=== PATIENT | male | born 1970 | race Caucasian/White ===

== ENCOUNTER → 2019-03-17 14:48 | Outpatient (BNVA) | payer BC, SELFPAY | PROVIDERS: Visit Provider Internal Medicine Rheumatology | DX: M05.79 Rheumatoid arthritis with rheumatoid factor of multiple sites without organ or systems involvement (principal); Z79.899 Other long term (current) drug therapy; Z79.891 Long term (current) use of opiate analgesic; G89.29 Other chronic pain | CPT/HCPCS: 36415; 80053; 80307; 99213 ==

== ENCOUNTER → 2019-03-17 15:59 | Outpatient (BNVA) | payer BC, SELFPAY | PROVIDERS: Visit Provider Internal Medicine Rheumatology | DX: Z51.81 Encounter for therapeutic drug level monitoring (principal); M05.79 Rheumatoid arthritis with rheumatoid factor of multiple sites without organ or systems involvement; Z79.891 Long term (current) use of opiate analgesic | CPT/HCPCS: 85025 ==

== ENCOUNTER 2019-05-10 07:05 | Outpatient (CLI) | payer BC, SELFPAY ==
--- NOTE | 2019-05-10 07:15 | XR_ITS ---
WS: [id number] ABDOMEN: SUPINE FILM HISTORY: urolithiasis COMPARISON: 10/29/2018 Prior cholecystectomy. Normal bowel gas pattern. Sclerotic lesion RIGHT ilium and area of enostosis. Right kidney: Small cluster of calcifications central RIGHT kidney with a maximum diameter 6 mm. No c hange. Left kidney: 2 mm calcification mid LEFT kidney. Previously described distal LEFT ureteral calcificat ion is no longer present. XR/XR KUB 85062 IMPRESSION: 1. Distal LEFT ureteral calcification is no longer identified. 2. Bilateral nephrolithiasis, unchanged.
== END 2019-05-10 07:06 | disposition home or self-care (01) ==
LOC: RAD 07:06
PROVIDERS: Visit Provider Urology
DX: N20.9 Urinary calculus, unspecified (principal); N20.0 Calculus of kidney
CPT/HCPCS: 74018; 81001

== ENCOUNTER 2019-06-16 07:13 | Outpatient (CLI) | payer BC, SELFPAY ==
--- NOTE | 2019-06-16 07:15 | XR_ITS ---
WS: [id number] XR KUB 10651 REASON FOR EXAM: urolithiasis FINDINGS: Sob changes with clips in the gallbladder. Stones are seen in both kidneys prominent stone is seen in the right today measures 6.25 mm and multi ple smaller stones are seen on left side. The ureters appear to be normal. The bladder area was normal. There is no obstructive changes. XR/XR KUB 91007 IMPRESSION: Bilateral renal calculus similar to previous exam May 10, 2019.
== END 2019-06-16 07:14 | disposition home or self-care (01) ==
LOC: RAD 07:16
PROVIDERS: Visit Provider Urology
DX: N20.9 Urinary calculus, unspecified (principal); N20.0 Calculus of kidney
CPT/HCPCS: 74018; 81001

== ENCOUNTER → 2019-09-15 09:38 | Outpatient (BNVA) | payer BC, SELFPAY | PROVIDERS: Visit Provider Internal Medicine Rheumatology | DX: M05.79 Rheumatoid arthritis with rheumatoid factor of multiple sites without organ or systems involvement (principal); Z79.899 Other long term (current) drug therapy; Z11.59 Encounter for screening for other viral diseases; Z11.1 Encounter for screening for respiratory tuberculosis; N20.2 Calculus of kidney with calculus of ureter; I10 Essential (primary) hypertension; F17.210 Nicotine dependence, cigarettes, uncomplicated | CPT/HCPCS: 36415; 80076; 82565; 84132; 85025; 85651; 86140; 86480; 86704; 86803; 87340; 99214 ==

== ENCOUNTER 2020-05-21 15:06 | Emergency (ER) | payer BC, SELFPAY ==
[2020-05-21 15:33] VITALS: BP 170/99; PULSE 60; RESP 18; TEMP 36.9; O2SAT 97; BMI 25.0
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
[2020-05-21 16:05] VITALS: RESP 16
[2020-05-21] MEDS: morphine 4 mg/mL SDV 1 mL IM (16:05)
[2020-05-21] MEDS: tetanus-diphtheria tox (adult) 0.5 mL SDV IM (16:06)
[2020-05-21] MEDS: ceFAZolin 1,000 mg SDV 1000 MG IM (16:22)
[2020-05-21 16:38] VITALS: RESP 18
[2020-05-21] MEDS: HYDROmorphone 1 mg/mL INJ 1 mL SUBCUT (16:38)
[2020-05-21 16:58] VITALS: BP 149/92; PULSE 75; RESP 16; O2SAT 97
--- NOTE | 2020-05-21 17:46 | PC.NURSE ---
irrigated the wound with NS, vaseline dressing and gauze applied to laceration site. splint applied, patient tolerated well
[2020-05-21 18:03] VITALS: BP 155/96; PULSE 77; RESP 16; O2SAT 97
== END 2020-05-21 18:31 | disposition short-term general hospital (02) ==
PROVIDERS: Emergency Provider Family Medicine
DX: S52.572A Other intraarticular fracture of lower end of left radius, initial encounter for closed fracture (principal); S62.112A Displaced fracture of triquetrum [cuneiform] bone, left wrist, initial encounter for closed fracture; S60.811A Abrasion of right wrist, initial encounter; I10 Essential (primary) hypertension; F17.210 Nicotine dependence, cigarettes, uncomplicated; V29.9XXA Motorcycle rider (driver) (passenger) injured in unspecified traffic accident, initial encounter; Z23 Encounter for immunization
CPT/HCPCS: 29125; 73090; 73110; 90471; 90714; 96372; 99285; J0690; J1170; J2270

== ENCOUNTER → 2020-06-05 12:58 | Outpatient (BNVA) | payer BC, SELFPAY | PROVIDERS: Visit Provider Internal Medicine Rheumatology | DX: M05.79 Rheumatoid arthritis with rheumatoid factor of multiple sites without organ or systems involvement (principal); Z79.899 Other long term (current) drug therapy; S52.502B Unspecified fracture of the lower end of left radius, initial encounter for open fracture type I or II; S62.112A Displaced fracture of triquetrum [cuneiform] bone, left wrist, initial encounter for closed fracture; Y93.9 Activity, unspecified; F17.210 Nicotine dependence, cigarettes, uncomplicated | CPT/HCPCS: 99214 ==

== ENCOUNTER → 2020-12-11 09:09 | Outpatient (BNVA) | payer BC, SELFPAY | PROVIDERS: Visit Provider Internal Medicine Rheumatology | DX: M05.79 Rheumatoid arthritis with rheumatoid factor of multiple sites without organ or systems involvement (principal); Z79.899 Other long term (current) drug therapy; F17.210 Nicotine dependence, cigarettes, uncomplicated | CPT/HCPCS: 99214 ==

== ENCOUNTER 2021-01-21 16:27 | Emergency (ER) | payer OTHER, BC, SELFPAY ==
[2021-01-21] VITALS (25 sets, daily range): BP systolic 94–132; BP diastolic 58–98; PULSE 119–152; RESP 11–26; O2SAT 91–98; BMI 24.3
--- NOTE | 2021-01-21 16:38 | XRR_ITS ---
PROCEDURE INFORMATION: Exam: XR Chest Exam date and time: 01/21/2021 4:38 PM Age: 50 years old Clinical indication: Shortness of breath; Additional info: Tachycardia TECHNIQUE: Imaging protocol: XR of the chest. Views: 1 view. COMPARISON: CR XR KUB 48032 06/16/2019 7:29 AM FINDINGS: Lungs: Unremarkable. No consolidation. Pleural spaces: Unremarkable. No pleural effusion. No pneumothorax. Heart/Mediastinum: Unremarkable. No cardiomegaly. Bones/joints: 4th anterior rib appears to demonstrate some apparent prominent sclerosis projected over the right lower lung field, a nonemergent chest CT could further evaluate this XR/XR chest 1V portable 39010 IMPRESSION: 1. No acute findings. 2. 4th anterior rib appears to demonstrate some apparent prominent sclerosis projected over the right lower lung field, a nonemergent chest CT could further evaluate this
[2021-01-21] MEDS: sodium chloride 0.9% 1,000 ML 999 ML IV (16:45)
[2021-01-21] MEDS: adenosine 3 mg/mL SDV 2mL 6 MG IVP (16:45)
--- NOTE | 2021-01-21 16:48 | PC.NURSE ---
REPORT GIVEN TO BRODIE REYNOSO CHARGE NURSE. DR. REAVES AT BEDSIDE.
[2021-01-21 16:49] LABS: Basophils # 0.1 10^3/uL (0.0-0.1); Basophils % 0.3 %; Eosinophils # 0.1 10^3/uL (0.0-0.8); Eosinophils % 0.8 %; Hematocrit 49.1 % (42.0-52.0); Hemoglobin 16.2 g/dL (11.7-16.6); Lymphocytes # 2.7 10^3/uL (0.8-4.8); Lymphocytes % 17.2 %; Mean Corpuscular Hemoglobin 29.2 pg (28.0-34.0); Mean Corpuscular Volume 88.5 fl (80-94); Mean Platelet Volume 9.9 fL (7.4-10.4); Monocytes # 1.3 10^3/uL (0.2-0.9); Monocytes % 8.1 %; Neutrophils # 11.47 10^3/uL (1.8-7.7); Nucleated Red Blood Cells % 0 %; Platelet Count 189 10^3/cmm (130-400); Red Blood Count 5.55 10^6/uL (4.1-5.3); White Blood Count 15.7 10^3/uL (4.0-10.0)
[2021-01-21] MEDS: adenosine 3 mg/mL SDV 2mL 12 MG IVP (17:00)
--- NOTE | 2021-01-21 17:03 | ECG_ITS ---
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 Measurements Intervals [place] Rate: 99 P: 72 UT: 124 QRS: 93 QRSD: 91 T: 6 QT: 328 QTc: 422 Interpretive Statements SINUS RHYTHM WITH OCCASIONAL VENTRICULAR PREMATURE COMPLEXES BORDERLINE RIGHT AXIS DEVIATION [QRS AXIS > 90] NONSPECIFIC T-WAVE ABNORMALITY INTERPRETATION BASED ON A DEFAULT AGE OF 40 YEARS No previous ECG available for comparison Electronically Signed On 01-21-2021 20:12:59 MUSHROOM CULTIVATOR by Anitra Alejandro M.D. [id number]
--- NOTE | 2021-01-21 17:10 | W.ED.SOB ---
Documented by User: José Cunha MD 02/01/21 01:42 HPI - SOB/Dyspnea General: Chief Complaint: Shortness of Breath/Dyspnea Stated Complaint: SOB Time Seen by Provider: 01/21/21 16:38 History of Present Illness: HPI Narrative: Mr. Correia is a 50-year-old gentleman with history of rheumatoid arthritis who presents emergency department due to shortness of breath. He reports symptom onset 3 to 4 days ago and gradual. He describes worse symptoms with exertion. No associated cough but he does feel a irritation inside his body which he describes like breathing cold air/rawness. No specific associated chest pain however sometimes this feeling goes down his arms. Denies specific chest pain. He is a smoker. Does have positive family history for heart attack less than 60 in his uncles. Intensity of symptoms is moderate to severe. No other recent changes in health, exacerbating, or alleviating factors. No history of similar in the past. 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 Review of Systems General: Reports: 10 or more systems reviewed and unremarkable except in HPI and below PFSH ED PFSH: Medical History Chronic pain of multiple sites High risk medication use History of kidney stones HTN (hypertension), benign Immunization counseling Immunosuppression Pulmonary embolism s/p embolectomy Seropositive rheumatoid arthritis of multiple joints Urolithiasis Surgical History Hx of cholecystectomy Family History Other CAD (coronary artery disease) Cancer Rheumatoid arthritis Stroke Denies family history of Diabetes Chronic kidney disease (CKD) Systemic lupus erythematosus (SLE) in adult Hypertension Social History Smoking and tobacco status: former smoker Alcohol intake: current Alcohol intake frequency: few times a month Alcohol type: beer Lives independently: No Household members: spouse Marital status: History of recent travel: No Physical Exam Narrative: EXAM NARRATIVE: GENERAL/CONSTITUTIONAL - ill-appearing. Tachycardic. Eyes - PERRL, no conjunctival injection ENMT - Atraumatic external nose and ears. Moist mucous membranes NECK - supple. trachea midline CARDIOVASCULAR - tachycardic rate and regular rhythm. Mildly decreased cap refill. RESPIRATORY -clear to auscultation bilaterally. Tachypnea. ABDOMEN/GI - Nontender/Nondistended. MSK - Extremities without obvious deformity or tenderness to palpation SKIN - Warm, Dry NEURO - alert and appropriately oriented. Moves all extremities equally. PSYCH -anxious Course ED course: - Patient was seen and evaluated by me at bedside - Patient placed on cardiac monitors, IV access obtained - Initial evaluation notable for tachycardia and ill appearance, blood pressure adequate at this time however patient does appear symptomatic. - Rate is very consistent at 150 raising concern for atrial flutter especially without other obvious explanation for symptoms. - Attempted modified Valsalva maneuver without success for slowing of rate. 6 mg adenosine slowed rate from 150 to mid 130s, still remains unclear rhythm though P waves are visible however returned to a rate of 150 after approximately 30 seconds. Patient was symptomatic during this and describes a feeling of blood rushing to his head. Unclear if insufficient dose or secondary etiology of tachycardia based on 6 mg dose and a 12 mg dose was given. Once again symptomatic although blood pressure remained adequate, slowed all the way down to mid 60s, rhythm appears sinus without sawtooth pattern or atrial fibrillation appearance, return to rate of 140. - IV fluids given. Patient does not report HPI consistent with dehydration - Labs notable for leukocytosis. Metabolic panel without acute electrolyte derangement to explain symptoms. Troponin is elevated as is BNP. Given unclear cause of tachycardia a D-dimer was ordered and is elevated. Therefore will proceed with CTA - Imaging notable for multiple bilateral pulmonary emboli including the right and left main pulmonary arteries with right heart strain. - I explained the results of ED evaluation with the patient. I explained risks and reasoning for heparin drip, patient questions answered, hypertrophy ordered. SABI score is elevated to the high risk region and we do not have interventional radiology at this facility. I believe, given the patient's elevated troponin and BNP as well as SABI score that he wants to transfer for higher level of care. - Patient care discussed with Dr. Son the overnight ED physician, he will take over care at this point pending transfer to outside facility. Vital Signs: Vital signs: Vital Signs Pulse Rate 119 H 01/21/21 23:38 Respiratory Rate 24 H 01/21/21 23:38 Blood Pressure 106/82 01/21/21 23:38 Pulse Oximetry 98 01/21/21 23:38 MDM - SOB/Dyspnea Medical Records: Attestation: I reviewed the patient's medical records. Lab Data: Attestation: I reviewed the patient's lab results. Labs: Lab Results 01/21/21 01/21/21 01/21/21 12:12 16:44 16:44 WBC 15.7 10^3/uL H 10 ^3/uL (4.0-10.0) RBC 5.55 10^6/uL H 10 ^6/uL (4.1-5.3) Hgb 16.2 g/dL g/dL (11.7-16.6) Hct 49.1 % % (42.0-52.0) MCV 88.5 fl fl (80-94) MCH 29.2 pg pg (28.0-34.0) MCHC 33.0 g/dL g/dL (30.0-36.0) RDW 13.0 % % (12.1-15.1) Plt Count 189 10^3/cmm 10^3 /cmm (130-400) MPV 9.9 fL fL (7.4-10.4) Neut % (Auto) 73.0 % % Lymph % (Auto) 17.2 % % Valencia % (Auto) 8.1 % % Eos % (Auto) 0.8 % % Baso % (Auto) 0.3 % % Neut # (Auto) 11.47 10^3/uL H 1 0^3/uL (1.8-7.7) Lymph # (Auto) 2.7 10^3/uL 10^3/ uL (0.8-4.8) [place] # (Auto) 1.3 10^3/uL H 10^ 3/uL (0.2-0.9) Eos # (Auto) 0.1 10^3/uL 10^3/ uL (0.0-0.8) Baso # (Auto) 0.1 10^3/uL 10^3/ uL (0.0-0.1) Nucleated RBC % (a uto) 0 % % Nucleated RBCs # 0.0 /100WBC /100W BC PT INR APTT D-Dimer Sodium 136 mmol/L mmol/L (136-145) Potassium 4.7 mmol/L mmol/L (3.5-5.1) Chloride 98 mmol/L mmol/L (98-107) Carbon Dioxide 23 mmol/L mmol/L (22-29) Anion Gap 19.7 H (5-19) BUN 10 mg/dL mg/dL (6-20) Creatinine 1.0 mg/dL mg/dL (0.7-1.2) GFR Calculation 79.1 mL/min L mL/ min (90-130) Glucose 154 mg/dL H mg/dL (65-115) Calculated Osmolal ity 284 mOsm/kg L mOs m/kg (285-295) Calcium 9.2 mg/dL mg/dL (8.5-10.5) Magnesium 1.7 mg/dL mg/dL (1.7-2.3) Total Bilirubin 1.0 mg/dL mg/dL (0.15-1.2) AST 28 U/L U/L (0-40) ALT 27 U/L U/L (0-41) Alkaline Phosphata se 112 IU/L IU/L (40-130) Troponin T Baselin e Troponin T 120 Min [place] Delta Troponin T Troponin T Hi Sens 6Hr Troponin T Hi Sens 6Hr Delta NT-Pro-B Natriuret Pep 5046 pg/mL H pg/m L (0-125) Total Protein 7.5 g/dL g/dL (6.6-8.7) Albumin 4.7 g/dL g/dL (3.5-5.2) Globulin 2.8 g/dL g/dL (1.3-4.6) TSH 4.45 uIU/mL H uIU /mL (0.27-4.20) Free T4 SARS-CoV-2 Ag (Rap id) Negative (Negative) 01/21/21 01/21/21 01/21/21 16:44 16:44 16:44 WBC RBC Hgb Hct MCV MCH MCHC RDW Plt Count MPV Neut % (Auto) Lymph % (Auto) Valencia % (Auto) Eos % (Auto) Baso % (Auto) Neut # (Auto) Lymph # (Auto) Valencia # (Auto) Eos # (Auto) Baso # (Auto) Nucleated RBC % (a uto) Nucleated RBCs # PT INR APTT D-Dimer 3.59 ug/mIFEU H u g/mIFEU (0-0.59) Sodium Potassium Chloride Carbon Dioxide Anion Gap BUN Creatinine GFR Calculation Glucose Calculated Osmolal ity Calcium Magnesium Total Bilirubin AST ALT Alkaline Phosphata se Troponin T Baselin e 120 ng/L H* ng/L (0-15) Troponin T 120 Min [place] Delta Troponin T Troponin T Hi Sens 6Hr Troponin T Hi Sens 6Hr Delta NT-Pro-B Natriuret Pep Total Protein Albumin Globulin TSH Free T4 1.60 ng/dL ng/dL (0.82-1.77) SARS-CoV-2 Ag (Rap id) 01/21/21 01/21/21 01/21/21 16:44 18:31 22:37 WBC RBC Hgb Hct MCV MCH MCHC RDW Plt Count MPV Neut % (Auto) Lymph % (Auto) Valencia % (Auto) Eos % (Auto) Baso % (Auto) Neut # (Auto) Lymph # (Auto) Valencia # (Auto) Eos # (Auto) Baso # (Auto) Nucleated RBC % (a uto) Nucleated RBCs # PT 13.60 SECONDS SEC ONDS (12.1-14.9) INR 1.01 (0.8-1.2) APTT 28.3 SECONDS SECO NDS (23.9-36.7) D-Dimer Sodium Potassium Chloride Carbon Dioxide Anion Gap BUN Creatinine GFR Calculation Glucose Calculated Osmolal ity Calcium Magnesium Total Bilirubin AST ALT Alkaline Phosphata se Troponin T Baselin e Troponin T 120 Min [place] 109.7 ng/L H ng/L (0-15) Delta Troponin T -10.3 ABS# L ABS# (0-10) Troponin T Hi Sens 6Hr 89.43 ng/L H ng/L (0-15) Troponin T Hi Sens 6Hr Delta -30.57 ng/L L ng/ L (0-12) NT-Pro-B Natriuret Pep Total Protein Albumin Globulin TSH Free T4 SARS-CoV-2 Ag (Rap id) Critical Care Time Critical Care Time: Critical Care Time: Yes Total Critical Care Time: 35 Attestation: Due to a high probability of clinically significant, possibly life threatening deterioration, the patient required my highest level of attention and preparedness to intervene emergently and I personally spent this critical care time directly and personally managing the patient. This critical care time included obtaining a history; examining the patient; pulse oximetry; ordering and review of laboratory and imaging studies; arranging urgent treatment with development of a management plan; evaluation of patient's response to treatment; frequent reassessment; and, discussions with other providers as applicable. It was exclusive of separately billable procedures. Discharge Plan Discharge Patient Disposition: Xfer Short-Term Hosp Clinical Impression: Pulmonary embolism Condition: Serious Coding Level of Care Code ED Computer Game Tester for Jannethg Fwd Documented by User: Castro Son DO 01/21/21 23:24 HPI - SOB/Dyspnea General: Chief Complaint: Shortness of Breath/Dyspnea Stated Complaint: SOB Time Seen by Provider: 01/21/21 16:38 PFSH ED PFSH: Medical History Chronic pain of multiple sites High risk medication use History of kidney stones HTN (hypertension), benign Immunization counseling Immunosuppression Pulmonary embolism s/p embolectomy Seropositive rheumatoid arthritis of multiple joints Urolithiasis Surgical History Hx of cholecystectomy Family History Other CAD (coronary artery disease) Cancer Rheumatoid arthritis Stroke Denies family history of Diabetes Chronic kidney disease (CKD) Systemic lupus erythematosus (SLE) in adult Hypertension Social History Smoking and tobacco status: former smoker Alcohol intake: current Alcohol intake frequency: few times a month Alcohol type: beer Lives independently: No Household members: spouse Marital status: History of recent travel: No Course ED course: 50-year-old male checked out to me by the previous physician at shift change. This gentleman continues to have a heart rate in the 140s. His blood pressure is mildly soft, 95-110 systolic. He is short of breath. He has minimal oxygen requirement at 2 L currently satting 97% with respiration 22. His D-dimer was significantly elevated. His troponin is elevated as well as his BNP of 5000. His CTA shows significant pulmonary embolus bilaterally with right heart strain evidence. Obviously this is concerning. The patient's been heparinized with bolus, and drip. Given his right heart strain and mild hypotension, or considering thrombectomy in this patient. We do not have interventional radiology available at this facility. We spoke with [facility] in [facility], and they are considering transfer 3: Patient has an ICU bed at [facility]. Interventional radiology is currently in a stroke case. They are waiting to show the radiologist the images. Currently heart rate has fallen to 130, blood pressure 102/85, saturation 97% on 2 L, respirations 20. He is still on heparin. 2: [facility] was not able to give us the ICU bed after all. We have called multiple facilities about this patient, and has had trouble finding an ICU bed/interventional radiology for this patient. We finally found a facility in [facility] [place] with both ICU and IR capability. The patient has remained stable. Heart rate 120, saturations 97% on 2 L, blood pressure 110/70. He will go by air transfer as it is a significant distance from us. Consultations: Consultation #1: weekly Vital Signs: Vital signs: Vital Signs Pulse Rate 119 H 01/21/21 23:38 Respiratory Rate 24 H 01/21/21 23:38 Blood Pressure 106/82 01/21/21 23:38 Pulse Oximetry 98 01/21/21 23:38 MDM - SOB/Dyspnea Lab Data: Labs: Lab Results 01/21/21 01/21/21 01/21/21 12:12 16:44 16:44 WBC 15.7 10^3/uL H 10 ^3/uL (4.0-10.0) RBC 5.55 10^6/uL H 10 ^6/uL (4.1-5.3) Hgb 16.2 g/dL g/dL (11.7-16.6) Hct 49.1 % % (42.0-52.0) MCV 88.5 fl fl (80-94) MCH 29.2 pg pg (28.0-34.0) MCHC 33.0 g/dL g/dL (30.0-36.0) RDW 13.0 % % (12.1-15.1) Plt Count 189 10^3/cmm 10^3 /cmm (130-400) MPV 9.9 fL fL (7.4-10.4) Neut % (Auto) 73.0 % % Lymph % (Auto) 17.2 % % Valencia % (Auto) 8.1 % % Eos % (Auto) 0.8 % % Baso % (Auto) 0.3 % % Neut # (Auto) 11.47 10^3/uL H 1 0^3/uL (1.8-7.7) Lymph # (Auto) 2.7 10^3/uL 10^3/ uL (0.8-4.8) Valencia # (Auto) 1.3 10^3/uL H 10^ 3/uL (0.2-0.9) Eos # (Auto) 0.1 10^3/uL 10^3/ uL (0.0-0.8) Baso # (Auto) 0.1 10^3/uL 10^3/ uL (0.0-0.1) Nucleated RBC % (a uto) 0 % % Nucleated RBCs # 0.0 /100WBC /100W BC PT INR APTT D-Dimer Sodium 136 mmol/L mmol/L (136-145) Potassium 4.7 mmol/L mmol/L (3.5-5.1) Chloride 98 mmol/L mmol/L (98-107) Carbon Dioxide 23 mmol/L mmol/L (22-29) Anion Gap 19.7 H (5-19) BUN 10 mg/dL mg/dL (6-20) Creatinine 1.0 mg/dL mg/dL (0.7-1.2) GFR Calculation 79.1 mL/min L mL/ min (90-130) Glucose 154 mg/dL H mg/dL (65-115) Calculated Osmolal ity 284 mOsm/kg L mOs m/kg (285-295) Calcium 9.2 mg/dL mg/dL (8.5-10.5) Magnesium 1.7 mg/dL mg/dL (1.7-2.3) Total Bilirubin 1.0 mg/dL mg/dL (0.15-1.2) AST 28 U/L U/L (0-40) ALT 27 U/L U/L (0-41) Alkaline Phosphata se 112 IU/L IU/L (40-130) Troponin T Baselin e Troponin T 120 Min [place] Delta Troponin T Troponin T Hi Sens 6Hr Troponin T Hi Sens 6Hr Delta NT-Pro-B Natriuret Pep 5046 pg/mL H pg/m L (0-125) Total Protein 7.5 g/dL g/dL (6.6-8.7) Albumin 4.7 g/dL g/dL (3.5-5.2) Globulin 2.8 g/dL g/dL (1.3-4.6) TSH 4.45 uIU/mL H uIU /mL (0.27-4.20) Free T4 SARS-CoV-2 Ag (Rap id) Negative (Negative) 01/21/21 01/21/21 01/21/21 16:44 16:44 16:44 WBC RBC Hgb Hct MCV MCH MCHC RDW Plt Count MPV Neut % (Auto) Lymph % (Auto) Valencia % (Auto) Eos % (Auto) Baso % (Auto) Neut # (Auto) Lymph # (Auto) Valencia # (Auto) Eos # (Auto) Baso # (Auto) Nucleated RBC % (a uto) Nucleated RBCs # PT INR APTT D-Dimer 3.59 ug/mIFEU H u g/mIFEU (0-0.59) Sodium Potassium Chloride Carbon Dioxide Anion Gap BUN Creatinine GFR Calculation Glucose Calculated Osmolal ity Calcium Magnesium Total Bilirubin AST ALT Alkaline Phosphata se Troponin T Baselin e 120 ng/L H* ng/L (0-15) Troponin T 120 Min [place] Delta Troponin T Troponin T Hi Sens 6Hr Troponin T Hi Sens 6Hr Delta NT-Pro-B Natriuret Pep Total Protein Albumin Globulin TSH Free T4 1.60 ng/dL ng/dL (0.82-1.77) SARS-CoV-2 Ag (Rap id) 01/21/21 01/21/21 01/21/21 16:44 18:31 22:37 WBC RBC Hgb Hct MCV MCH MCHC RDW Plt Count MPV Neut % (Auto) Lymph % (Auto) Valencia % (Auto) Eos % (Auto) Baso % (Auto) Neut # (Auto) Lymph # (Auto) Valencia # (Auto) Eos # (Auto) Baso # (Auto) Nucleated RBC % (a uto) Nucleated RBCs # PT 13.60 SECONDS SEC ONDS (12.1-14.9) INR 1.01 (0.8-1.2) APTT 28.3 SECONDS SECO NDS (23.9-36.7) D-Dimer Sodium Potassium Chloride Carbon Dioxide Anion Gap BUN Creatinine GFR Calculation Glucose Calculated Osmolal ity Calcium Magnesium Total Bilirubin AST ALT Alkaline Phosphata se Troponin T Baselin e Troponin T 120 Min [place] 109.7 ng/L H ng/L (0-15) Delta Troponin T -10.3 ABS# L ABS# (0-10) Troponin T Hi Sens 6Hr 89.43 ng/L H ng/L (0-15) Troponin T Hi Sens 6Hr Delta -30.57 ng/L L ng/ L (0-12) NT-Pro-B Natriuret Pep Total Protein Albumin Globulin TSH Free T4 SARS-CoV-2 Ag (Rap id) Critical Care Time Critical Care Time: Critical Care Time: Yes Total Critical Care Time: 65 Attestation: This case had a high probability of a clinically significant, sudden, or life threatening deterioration of this patient's condition which required my full and direct attention, intervention and personal management. This is independent of any procedures performed Discharge Plan Discharge Patient Disposition: Xfer Short-Term Hosp Clinical Impression: Pulmonary embolism Condition: Serious Coding Level of Care Code ED Computer Game Tester for Jimmy Castaneda
[2021-01-21 17:17] LABS: Alanine Aminotransferase 27 U/L (0-41); Albumin Level 4.7 g/dL (3.5-5.2); Alkaline Phosphatase 112 IU/L (40-130); Anion Gap 19.7 (5-19); Aspartate Amino Transferase 28 U/L (0-40); Blood Urea Nitrogen 10 mg/dL (6-20); Calcium 9.2 mg/dL (8.5-10.5); Carbon Dioxide 23 mmol/L (22-29); Chloride 98 mmol/L (98-107); Globulin 2.8 g/dL (1.3-4.6); Glomerular Filtration Rate 79.1 mL/min (90-130); Glucose 154 mg/dL (65-115); Magnesium 1.7 mg/dL (1.7-2.3); NT Pro B Type Natriuretic Pept 5046 pg/mL (0-125); Osmolality Calculated 284 mOsm/kg (285-295); Potassium 4.7 mmol/L (3.5-5.1); Sodium 136 mmol/L (136-145); Thyroid Stimulating Hormone 4.45 uIU/mL (0.27-4.20); Total Protein 7.5 g/dL (6.6-8.7)
[2021-01-21 17:32] LABS: D Dimer 3.59 ug/mIFEU (0-0.59)
--- NOTE | 2021-01-21 17:35 | CTR_ITS ---
PROCEDURE INFORMATION: Exam: CTA Chest With Contrast Exam date and time: 01/21/2021 5:35 PM Age: 50 years old Clinical indication: Shortness of breath; Prior surgery; Surgery date: 6+ months; Surgery type: Gb; Patient HX: SOB, elevated d-dimer; Additional info: Tachycardia, SOB, elevated ddimer TECHNIQUE: Imaging protocol: Computed tomographic angiography of the chest with contrast. 3D rendering (Not supervised by radiologist): MIP and/or 3D reconstructed images were created by the technologist. Radiation optimization: All CT scans at this facility use at least one of these dose optimization techniques: automated exposure control; mA and/or kV adjustment per patient size (includes targeted exams where dose is matched to clinical indication); or iterative reconstruction. Contrast material: OMNI 350; Contrast volume: 75 ml; Contrast route: INTRAVENOUS (IV); COMPARISON: CR (CHEST, ) 01/21/2021 5:04 PM RADIATION DOSE METRICS: Total DLP (mGy-cm): 618.72 FINDINGS: Pulmonary arteries: Multiple bilateral pulmonary emboli extending from the distal portions of the right and left main pulmonary arteries into the segmental and subsegmental branches with some right heart strain suspected given some leftward intraventricular septal bowing. Aorta: Unremarkable. No aortic aneurysm. No aortic dissection. Lungs: Bibasilar right greater left airspace opacities may reflect pneumonic infiltrates, given the somewhat focal nature of these, mass lesions are not excluded, the largest measures up to approximately 4.5 cm in the right lower lobe. Consider short-term interval follow-up to assess for resolution. Pleural spaces: Unremarkable. No pneumothorax. No pleural effusion. Heart: Coronary artery atherosclerotic calcifications. Lymph nodes: Unremarkable. No enlarged lymph nodes. Gallbladder and bile ducts: Cholecystectomy. Bones/joints: Unremarkable. No acute fracture. Soft tissues: Unremarkable. CT/CT angio chest PE protcl [id number] IMPRESSION: 1. Multiple bilateral pulmonary emboli extending from the distal portions of the right and left main pulmonary arteries into the segmental and subsegmental branches with some right heart strain suspected given some leftward intraventricular septal bowing. 2. Coronary artery atherosclerotic calcifications. 3. Bibasilar right greater left airspace opacities may reflect pneumonic infiltrates, given the somewhat focal nature of these, mass lesions are not excluded, the largest measures up to approximately 4.5 cm in the right lower lobe. Consider short-term interval follow-up to assess for resolution. 4. Cholecystectomy.
[2021-01-21 17:50] LABS: Troponin(5th) Baseline 120 ng/L (0-15)
[2021-01-21] MEDS: aspirin 81 mg Chew Tablet 324 MG PO (18:31)
[2021-01-21] MEDS: iohexol 350 mg/mL 100 mL Btl IV (18:37)
[2021-01-21] MEDS: diphenhydrAMINE 50 mg/mL SDV 1mL IVP (18:55)
[2021-01-21] MEDS: famotidine 20 mg/2 mL INJ 40 MG IVP (19:01)
--- NOTE | 2021-01-21 19:03 | ECG_ITS ---
[facility] Test Date: 2021-01-21 Pat Name: Boris Correia Department: Room: Gender: Male Tack Cutter: : 1970 Requested By: José Cunha Order Number: [id number] Michelle MD: Anitra Alejandro M.D. Measurements Intervals [place] Rate: 140 P: 68 FL: 111 QRS: 93 QRSD: 101 T: -3 QT: 300 QTc: 459 Interpretive Statements SINUS TACHYCARDIA WITH SHORT FL INTERVAL, POSSIBLE ATRIAL FLUTTER BORDERLINE RIGHT AXIS DEVIATION [QRS AXIS > 90] NONSPECIFIC T-WAVE ABNORMALITY Compared to ECG 01/21/2021 17:00:43 Sinus rhythm no longer present Ventricular premature complex(es) no longer present T-wave abnormality still present Electronically Signed On 01-21-2021 20:39:00 COLD STORAGE SUPERINTENDENT by Anitra Alejandro M.D. [id number]
[2021-01-21 19:04] LABS: Troponin 5 2HR Delta -10.3 ABS# (0-10)
[2021-01-21 19:05] LABS: Troponin 5 2HR 109.7 ng/L (0-15)
[2021-01-21] MEDS: heparin 5,000 unit/mL INJ 1 mL IV (19:08)
[2021-01-21 19:12] LABS: INR 1.01 (0.8-1.2); Partial Thromboplastin Time 28.3 SECONDS (23.9-36.7)
[2021-01-21] MEDS: LORazepam 2 mg/mL INJ 1 mL 1 MG IVP (19:22)
[2021-01-21] MEDS: heparin drip 25,000 UNIT/500 ML PREMIX 24 UNIT IV (19:25)
[2021-01-21 19:36] LABS: SARS Covid-2 Antigen Negative (Negative)
--- NOTE | 2021-01-21 23:03 | ECG_ITS ---
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 Measurements Intervals [place] Rate: 119 P: 71 CA: 150 QRS: 97 QRSD: 102 T: -26 QT: 309 QTc: 436 Interpretive Statements SINUS TACHYCARDIA BORDERLINE RIGHT AXIS DEVIATION [QRS AXIS > 90] NONSPECIFIC T-WAVE ABNORMALITY Compared to ECG 01/21/2021 19:19:53 No significant changes Electronically Signed On 01-22-2021 20:49:46 CORE WORKER by Anitra Alejandro M.D. [id number]
[2021-01-21 23:08] LABS: Troponin 5 6HR 89.43 ng/L (0-15)
== END 2021-01-21 23:43 | disposition short-term general hospital (02) ==
PROVIDERS: Emergency Medicine; Emergency Provider Emergency Medicine
DX: I26.99 Other pulmonary embolism without acute cor pulmonale (principal); I10 Essential (primary) hypertension; Z86.711 Personal history of pulmonary embolism; Z87.891 Personal history of nicotine dependence; Z20.822 Contact with and (suspected) exposure to COVID-19
CPT/HCPCS: 71045; 71275; 80053; 83735; 83880; 84439; 84443; 84484; 85025; 85378; 85610; 85730; 87426; 93005; 96365; 96375; 99285; J0153; J1200; J1644; J2060; J2930; J3490; J7030; Q9967

== ENCOUNTER 2021-03-23 13:38 | Emergency (ER) | payer OTHER, SELFPAY ==
[2021-03-23 13:55] VITALS: BP 113/80; PULSE 100; RESP 18; TEMP 36.5; O2SAT 96; BMI 23.5
--- NOTE | 2021-03-23 14:07 | W.ED.GENADLT ---
HPI - General Adult General: Chief complaint: General Medical Stated complaint: Arthritis, running a fevor, breaking out in hives Time Seen by Provider: 03/23/21 14:06 Source: patient Mode of arrival: ambulatory Limitations: no limitations History of Present Illness: 50 yo presents emergency room complaining of joint pain and swelling. Is a history rheumatoid arthritis. He began having a flareup 5 days ago they advised him to start prednisone 4 days ago and they doubled his Imuran. Shortly after doubling his Imuran his rash began he has a tender reddened rash slightly raised it is nonpruritic. It is about his trunk and significant only on his extremities. He also was noted to have some on his palms. He is not had any shortness of breath but he has a little bit of chest discomfort. He has noticed some joint swelling he still has the joint discomfort that began with the initial exacerbation. He has a history of previous pulmonary emboli thought to be related to medication he had been on for his rheumatoid arthritis Onset (ago): minute(s) Severity: mild Relieving factors: none Exacerbating factors: none Associated symptoms: Deny chest pain, confusion, cough, diaphoresis, decreased appetite, dyspnea, fevers/chills, headache(s), malaise, nausea, rash, palpitations, seizures, short of breath, syncope, vomiting or weakness Treatments prior to arrival: none Review of Systems Const: Denies: malaise or diaphoresis ENMT: Denies: throat pain, ear or mastoid pain, nasal discharge or nasal congestion Card: Denies: chest pain, palpitations or syncope Resp: Denies: dyspnea GI: Denies: nausea or vomiting : Denies: flank pain, dysuria, urinary frequency or urinary urgency Skin/Breast: Denies: rash Neuro: Denies: headache(s) or confusion PFSH ED PFSH: Medical History Chronic pain of multiple sites Drug-induced skin rash High risk medication use History of kidney stones HTN (hypertension), benign Immunization counseling Immunosuppression Pulmonary embolism Hx of PE, s/p embolectomy Seropositive rheumatoid arthritis of multiple joints Urolithiasis Surgical History Hx of cholecystectomy Family History Other CAD (coronary artery disease) Cancer Rheumatoid arthritis Stroke Denies family history of Diabetes Chronic kidney disease (CKD) Systemic lupus erythematosus (SLE) in adult Hypertension Social History Smoking and tobacco status: former smoker Alcohol intake: current Alcohol intake frequency: few times a month Alcohol type: beer Lives independently: No Household members: spouse Marital status: History of recent travel: No Physical Exam Const: GENERAL APPEARANCE: cooperative and comfortable ORIENTATION/CONSCIOUSNESS: Yes awake, Yes oriented to person, Yes oriented to place and Yes oriented to time HENMT: COMMON NORMALS: normocephalic, atraumatic and hearing grossly normal bilaterally HEAD & SCALP: normocephalic and atraumatic Eye: COMMON NORMALS: Equal, round and reactive pupils present, EOMs intact bilaterally, conjunctivae normal and no scleral icterus CONJUNCTIVA: Yes conjunctivae normal PUPIL: Yes Equal, round and reactive pupils present Neck/C-Spine: COMMON NORMALS: no JVD Resp: COMMON NORMALS: normal respiratory effort, No retractions, No use of accessory muscles and clear to auscultation bilaterally AUSCULTATION: clear to auscultation bilaterally Cardio: COMMON NORMALS: no JVD, regular rate, regular rhythm and No murmurs present (Cardio) RATE: regular rate RHYTHM: regular rhythm GI: COMMON NORMALS: Soft to palpation and No hepatosplenomegaly present AUSCULTATION: Yes normoactive bowel sounds PALPATION: Yes Soft to palpation, No Tenderness to palpation present (GI), No Guarding due to palpation present (GI) and Yes No hepatosplenomegaly present Extremity: COMMON NORMALS: capillary refill normal, no clubbing, cyanosis or edema, no calf tenderness and no pedal edema Neuro: SENSORIUM/ORIENTATION: Yes oriented to person, Yes oriented to place and Yes oriented to time Skin: OTHER: Purpuric rash on the extremities including the palms of the hands. [place] on the neck much more sparse on the abdomen and back. Course Vital Signs: Vital signs: Vital Signs Temperature 97.7 F 03/23/21 13:55 Pulse Rate 91 03/23/21 16:52 Respiratory Rate 16 03/23/21 16:52 Blood Pressure 111/74 03/23/21 16:52 Pulse Oximetry 97 03/23/21 16:52 MDM - General Adult Medical Decision Making Patient has fairly significant rash. 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 Continue prednisone hydroxyzine as needed Medical Records I reviewed the patient's medical records. Lab Data I reviewed the patient's lab results. : 03/23/21 14:43 03/23/21 15:25 Radiology Impressions Chest X-Ray 03/23/21 14:15 IMPRESSION: Resolution of previous inflammatory mass seen on previous chest x-ray and better defined on the CT scan of 01/21/2021. Presumed ongoing pneumonitis in the lower lobes with changing character. May need another CT scan with contrast to better delineate these abnormalities. Laboratory Results WBC 16.1 10^3/uL (4.0-10.0) H 03/23/21 14:43 RBC 5.32 10^6/uL (4.1-5.3) H 03/23/21 14:43 Hgb 15.0 g/dL (11.7-16.6) 03/23/21 14:43 Hct 45.8 % (42.0-52.0) 03/23/21 14:43 MCV 86.1 fl (80-94) 03/23/21 14:43 MCH 28.2 pg (28.0-34.0) 03/23/21 14:43 MCHC 32.8 g/dL (30.0-36.0) 03/23/21 14:43 RDW 12.6 % (12.1-15.1) 03/23/21 14:43 Plt Count 176 10^3/cmm (130-400) 03/23/21 14:43 MPV 10.1 fL (7.4-10.4) 03/23/21 14:43 Neut % (Auto) 87.9 % 03/23/21 14:43 Lymph % (Auto) 5.0 % 03/23/21 14:43 [place] % (Auto) 4.7 % 03/23/21 14:43 Eos % (Auto) 0.1 % 03/23/21 14:43 Baso % (Auto) 0.6 % 03/23/21 14:43 Neut # (Auto) 14.14 10^3/uL (1.8-7.7) H 03/23/21 14:43 Lymph # (Auto) 0.8 10^3/uL (0.8-4.8) 03/23/21 14:43 [place] # (Auto) 0.8 10^3/uL (0.2-0.9) 03/23/21 14:43 Eos # (Auto) 0.0 10^3/uL (0.0-0.8) 03/23/21 14:43 Baso # (Auto) 0.1 10^3/uL (0.0-0.1) 03/23/21 14:43 Nucleated RBC % (auto) 0 % 03/23/21 14:43 Nucleated RBCs # 0.0 /100WBC 03/23/21 14:43 Sodium 130 mmol/L (136-145) L 03/23/21 15:25 Potassium 4.1 mmol/L (3.5-5.1) 03/23/21 15:25 Chloride 96 mmol/L (98-107) L 03/23/21 15:25 Carbon Dioxide 19 mmol/L (22-29) L 03/23/21 15:25 Anion Gap 19.1 (5-19) H 03/23/21 15:25 BUN 20 mg/dL (6-20) 03/23/21 15:25 Creatinine 0.8 mg/dL (0.7-1.2) 03/23/21 15:25 GFR Calculation 102.3 mL/min (90-130) 03/23/21 15:25 Glucose 115 mg/dL (65-115) 03/23/21 15:25 Calculated Osmolality 274 mOsm/kg (285-295) L 03/23/21 15:25 Calcium 10.0 mg/dL (8.5-10.5) 03/23/21 15:25 Total Bilirubin 0.8 mg/dL (0.15-1.2) 03/23/21 15:25 AST 16 U/L (0-40) 03/23/21 15:25 ALT 23 U/L (0-41) 03/23/21 15:25 Alkaline Phosphatase 189 IU/L (40-130) H 03/23/21 15:25 Total Protein 7.4 g/dL (6.6-8.7) 03/23/21 15:25 Albumin 3.8 g/dL (3.5-5.2) 03/23/21 15:25 Globulin 3.6 g/dL (1.3-4.6) 03/23/21 15:25 Urine Color Dark yellow (Yellow) 03/23/21 15:01 Urine Appearance Clear (CLEAR) 03/23/21 15:01 Urine pH 5 (5-7) 03/23/21 15:01 Ur Specific [place] 1.025 (1.005-1.030) 03/23/21 15:01 Urine Protein 1+ (Negative) H 03/23/21 15:01 Urine Glucose (UA) Norm (Normal) 03/23/21 15:01 Urine Ketones Negative (Negative) 03/23/21 15:01 Urine Blood 2+ (Negative) H 03/23/21 15:01 Urine Nitrate Negative (Negative) 03/23/21 15:01 Urine Bilirubin 1+ (Negative) H 03/23/21 15:01 Urine Urobilinogen 1 mg/dL (Negative) H 03/23/21 15:01 Ur Leukocyte Esterase Negative (Negative) 03/23/21 15:01 Urine RBC 5-10 /hpf (0-2) H 03/23/21 15:01 Urine WBC 0-4 /hpf (0-5) H 03/23/21 15:01 Ur Squamous Epith Cells Rare /hpf (0-5) 03/23/21 15:01 Amorphous Sediment 2+ /hpf 03/23/21 15:01 Urine Bacteria 1+ /hpf (NONE) H 03/23/21 15:01 Fine Granular Casts 5-10 /lpf H 03/23/21 15:01 Discharge Plan Discharge Patient Disposition: Home Clinical Impression: Erythema nodosum Condition: Stable Prescriptions: New hydroxyzine HCl 25 mg tablet 25 mg PO Q6H PRN (Reason: itching or sleep) Qty: 20 0RF No Action Eliquis 5 mg tablet 5 mg PO BID Qty: 180 3RF pantoprazole 40 mg tablet,delayed release (DR/EC) See Rx Instructions PO DAILY Qty: 30 3RF Rx Instructions: take in AM 30 minutes before meal PO daily; prednisone 20 mg tablet 20 mg PO DAILY Qty: 45 0RF Rx Instructions: 3 tabs x3days, 2tabs x3days, 1tab x3days, 0.5 tab x3days then 0.5 tab everyother day x6 days then stop. Discharge Orders: Discharge ED (Routine); Ordered 03/23/21 Ordered By: Kenan Alford Referrals: Mehrdad Mcrae MD [Primary Care Provider] - Discharge Diet: Usual diet Discharge Activity: Resume usual activity Patient Instructions: Opioid Safety Activity Restrictions/Additional Instructions: Stop Imuran. Increase prednisone to 3 times daily call and see Dr. Carter on Friday Coding Level of Care Code ED Street Openings Inspector for Chg Fwd Exam Comprehensive
--- NOTE | 2021-03-23 14:15 | ECG_ITS ---
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: : 1970 Requested By: Kenan Caldwell Order Number: [id number] Reading MD: LISANDRA YANEZ Measurements Intervals [place] Rate: 90 P: 74 GA: 157 QRS: 56 QRSD: 93 T: 68 QT: 326 QTc: 400 Interpretive Statements SINUS RHYTHM INTERPRETATION BASED ON A DEFAULT AGE OF 40 YEARS Compared to ECG 01/21/2021 22:48:03 Sinus tachycardia no longer present T-wave abnormality no longer present Electronically Signed On 03-23-2021 22:54:42 CAPTAIN FISHING VESSEL by LISANDRA YANEZ [id number] f
--- NOTE | 2021-03-23 14:15 | XR_ITS ---
WS: [id number] XR chest 1V portable [id number] REASON FOR EXAM: dyspnea/cough FINDINGS: Mild tortuosity of the thoracic aorta. Normal heart size. Calcified granulomatous disease in both hemithoraces. Compared to the previous examination of 01/21/2021, the vague opacity overlying the mid right lower l john has resolved. This was demonstrated to be a inflammatory mass on the CT scan of 01/21/2021. There are now 2 linear areas of lung opacity in the right lower lung compatible with scarring or atel ectasis. There are now subtle reticular and ill-defined hazy opacities in both lower lung lott comp ared to the previous examination. There is an ill-defined lung opacity overlying the inferior most ri ght hilum. XR/XR chest 1V portable [id number] IMPRESSION: Resolution of previous inflammatory mass seen on previous chest x-ray and bet ter defined on the CT scan of 01/21/2021. Presumed ongoing pneumonitis in the lower lobes with changing character. May ne ed another CT scan with contrast to better delineate these abnormalities.
[2021-03-23 14:55] LABS: Basophils # 0.1 10^3/uL (0.0-0.1); Basophils % 0.6 %; Eosinophils % 0.1 %; Hematocrit 45.8 % (42.0-52.0); Lymphocytes # 0.8 10^3/uL (0.8-4.8); Mean Corpuscular HGB Conc 32.8 g/dL (30.0-36.0); Mean Corpuscular Hemoglobin 28.2 pg (28.0-34.0); Mean Corpuscular Volume 86.1 fl (80-94); Mean Platelet Volume 10.1 fL (7.4-10.4); Monocytes # 0.8 10^3/uL (0.2-0.9); Monocytes % 4.7 %; Neutrophils # 14.14 10^3/uL (1.8-7.7); Neutrophils % 87.9 %; Nucleated Red Blood Cells % 0 %; Platelet Count 176 10^3/cmm (130-400); Red Blood Count 5.32 10^6/uL (4.1-5.3); Red Cell Distribution Width 12.6 % (12.1-15.1); White Blood Count 16.1 10^3/uL (4.0-10.0)
[2021-03-23 15:30] LABS: Add Urine Microscopic? YES; Bilirubin Urine 1+ (Negative); Blood Urine 2+ (Negative); Glucose Urine UA Norm (Normal); Ketones Urine Negative (Negative); Leukocyte Esterase Urine Negative (Negative); Nitrate Urine Negative (Negative); Protein Urine 1+ (Negative); Specific Gravity, Urine 1.025 (1.005-1.030); Urine Appearance Clear (CLEAR); Urine Color Dark Yellow (Yellow); Urobilinogen Urine 1 mg/dL (Negative); pH Urine 5 (5-7)
[2021-03-23 15:32] LABS: Amorphous Sediment Urine 2+ /hpf; Bacteria Urine 1+ /hpf; Squamous Epithelial Cell Urine RARE /hpf (0-5); WBC Urine 0-4 /hpf (0-5)
[2021-03-23 15:33] LABS: Add Urine Culture? No
[2021-03-23 15:57] LABS: Alanine Aminotransferase 23 U/L (0-41); Albumin Level 3.8 g/dL (3.5-5.2); Alkaline Phosphatase 189 IU/L (40-130); Anion Gap 19.1 (5-19); Aspartate Amino Transferase 16 U/L (0-40); Blood Urea Nitrogen 20 mg/dL (6-20); Carbon Dioxide 19 mmol/L (22-29); Chloride 96 mmol/L (98-107); Globulin 3.6 g/dL (1.3-4.6); Glomerular Filtration Rate 102.3 mL/min (90-130); Glucose 115 mg/dL (65-115); Osmolality Calculated 274 mOsm/kg (285-295); Potassium 4.1 mmol/L (3.5-5.1); Sodium 130 mmol/L (136-145); Total Bilirubin 0.8 mg/dL (0.15-1.2); Total Protein 7.4 g/dL (6.6-8.7)
[2021-03-23 16:52] VITALS: BP 111/74; PULSE 91; RESP 16; O2SAT 97
--- NOTE | 2021-03-26 09:28 | DCPLANNER ---
manager poker had message to schedule a follow up appointment for patient with rheumatology. manager poker called the clinic, spoke with physicians nurse, gave clinic patients information. manager poker was told that patients information would be printed and reviewed. Clinic will call patient with appointment information.
== END 2021-03-23 16:57 | disposition home or self-care (01) ==
PROVIDERS: Emergency Provider Family Medicine; PCP Internal Medicine
DX: L52 Erythema nodosum (principal); Z79.01 Long term (current) use of anticoagulants; I10 Essential (primary) hypertension; Z86.711 Personal history of pulmonary embolism; Z87.891 Personal history of nicotine dependence
CPT/HCPCS: 71045; 80053; 81001; 85025; 93005; 99283

== ENCOUNTER → 2021-06-11 09:45 | Outpatient (BNVA) | payer OTHER, SELFPAY | PROVIDERS: PCP Internal Medicine; Visit Provider Internal Medicine Rheumatology | DX: M05.79 Rheumatoid arthritis with rheumatoid factor of multiple sites without organ or systems involvement (principal); Z79.899 Other long term (current) drug therapy | CPT/HCPCS: 36415; 80076; 82565; 85025; 86140 ==

== ENCOUNTER → 2021-10-17 10:43 | Outpatient (BNVA) | payer OTHER, SELFPAY | PROVIDERS: PCP Internal Medicine; Visit Provider Internal Medicine Rheumatology | DX: M05.79 Rheumatoid arthritis with rheumatoid factor of multiple sites without organ or systems involvement (principal); Z79.899 Other long term (current) drug therapy; Z71.89 Other specified counseling; I26.99 Other pulmonary embolism without acute cor pulmonale | CPT/HCPCS: 36415; 80076; 82565; 85025; 86140 ==

== ENCOUNTER → 2024-01-14 17:51 | Outpatient (BNVA) | payer OTHER, SELFPAY | PROVIDERS: PCP Family Medicine | DX: R39.9 Unspecified symptoms and signs involving the genitourinary system (principal) | CPT/HCPCS: 81000; 87086 ==

== ENCOUNTER 2025-01-05 07:27 | Outpatient (CLI) | payer OTHER, SELFPAY ==
[2025-01-05 08:16] LABS: Hematocrit 51.7 % (37-53); Hemoglobin 17.00 g/dL (11.27-16.99); Mean Corpuscular HGB Conc 32.9 g/dL (30-55); Mean Corpuscular Hemoglobin 29.2 pg (27-33); Mean Corpuscular Volume 88.7 fl (82-101); Nucleated Red Blood Cells % 0 %; Platelet Count 251 10^3/cmm (157-399); Red Blood Count 5.83 10^6/uL (3.85-5.65); White Blood Count 8.27 10^3/uL (3.29-11.43)
[2025-01-05 08:52] LABS: Alanine Aminotransferase 12 U/L (0-41); Albumin Level 4.7 g/dL (3.5-5.2); Alkaline Phosphatase 69 U/L (40-130); Aspartate Amino Transferase 12 U/L (0-40); Globulin 2.5 g/dL (1.3-4.6); Total Protein 7.2 g/dL (6.6-8.7)
[2025-01-05 09:20] LABS: Hepatitis B Surface Antigen Non-Reactive (Nonreactive)
== END 2025-01-05 07:28 | disposition home or self-care (01) ==
PROVIDERS: PCP Family Medicine; Visit Provider Internal Medicine Rheumatology
DX: Z79.899 Other long term (current) drug therapy (principal); M05.79 Rheumatoid arthritis with rheumatoid factor of multiple sites without organ or systems involvement
CPT/HCPCS: 36415; 80076; 82565; 85025; 85651; 86140; 86480; 86704; 86803; 87340